=== PATIENT | male | born 1970 | race Caucasian/White ===

== ENCOUNTER 2020-01-23 20:38 | Emergency (ER) | payer BC, SELFPAY ==
[2020-01-23 20:46] VITALS: BP 158/101; PULSE 80; RESP 18; TEMP 36.7; O2SAT 97
--- NOTE | 2020-01-23 20:56 | ED.GENADULT ---
HPI - General Adult General Chief complaint: Wound/Laceration Stated complaint: laceration to foot with glass Time Seen by Provider: 01/23/20 20:40 Source: patient and family Mode of arrival: ambulatory Limitations: no limitations History of Present Illness HPI narrative: Patient is a 49-year-old male who presents with left foot laceration patient was walking when a piece of glass cut his foot at the forefoot along the medial aspect there was a piece of glass protruding from the garbage patient notes mild aching pain states his tetanus is up-to-date denies any other complaints patient presents per private vehicle immediately after the incident Related Data Allergies Allergy/AdvReac Type Severity Reaction Status Date / Time No Known Allergies Allergy Unverified 10/14/17 14:19 Review of Systems Review of Systems: All systems reviewed & are unremarkable except as noted in HPI and below PMFSH Past Medical History Medical History (Updated 01/23/20 @ 20:59 by Akash Bacon PA-C) Depression Exam Narrative: Exam Narrative: GENERAL: Well-appearing, well-nourished, and in no acute distress. HEAD: Normocephalic, atraumatic. EYES: PERRLA and EOMI. ENT: Nares clear, no rhinorrhea or epistaxis. Mucous membranes moist. EXTREMITIES: Normal range of motion. No edema. SKIN: Warm, dry, no rash. 4 cm laceration of the left forefoot along the medial aspect that is superficial and linear in nature wound was explored no foreign bodies NEURO: No focal deficits. Alert and oriented x3. Neurovascularly intact PSYCH: Normal mood and affect. Course Course Emergency Course: Patient in the room at this time aware of case findings treatment plan and diagnosis agreeing to follow-up as directed had closure of the wound has tetanus up-to-date felt appropriate for outpatient reevaluation Vital Signs Vital signs: Vital Signs Temperature 98.1 F 01/23/20 20:46 Pulse Rate 80 01/23/20 20:46 Respiratory Rate 18 01/23/20 20:46 Blood Pressure 158/101 H 01/23/20 20:46 Pulse Oximetry 97 01/23/20 20:46 Temperature 98.1 F 01/23/20 20:46 Pulse Rate 80 01/23/20 20:46 Respiratory Rate 18 01/23/20 20:46 Blood Pressure 158/101 H 09/19/20 20:46 Pulse Oximetry 97 01/23/20 20:46 Procedures Laceration Laceration 1: Date: 01/23/20 Time: 20:58 Site: lower extremity Side (If applicable): left Size (cm): 4 Description: linear Depth: simple, single layer Local Anesthetic: none Pre-repair: wound explored, irrigated and irrigated extensively ====== Skin Level ====== Skin layer closed with: zaida Number of sutures: 7 ====== Subcutaneous Layer ====== ====== Muscle Layer ====== ====== Tendon Layer ====== Dressing: Wound was prepped with [employer] scrub with copious irrigation closure with zaida edges well approximated nonadhesive 4 x 4 and Coban placed post procedure neurovascularly intact pre-and post procedure Medical Decision Making MDM Narrative Medical decision making narrative: Patients injury or pain is consistent with musculoskeletal etiology. No signs of neurological or vascular compromise on exam. Compartments and tisues are soft without signs of compartment syndrome. Pain is felt appropriate for further evaluation on an outpatient basis. Vital Signs Vital Signs: Vital Signs Temperature 98.1 F 01/23/20 20:46 Pulse Rate 80 01/23/20 20:46 Respiratory Rate 18 01/23/20 20:46 Blood Pressure 158/101 H 01/23/20 20:46 Pulse Oximetry 97 01/23/20 20:46 Temperature 98.1 F 01/23/20 20:46 Pulse Rate 80 01/23/20 20:46 Respiratory Rate 18 01/23/20 20:46 Blood Pressure 158/101 H 01/23/20 20:46 Pulse Oximetry 97 01/23/20 20:46 Discharge Plan Discharge Clinical Impression: Laceration Patient Disposition: Home, Self-Care Condition: Stable Instructions: Antibiotic Form, Lacerati
--- NOTE | 2020-01-23 21:29 | PC.NURSE ---
post op shoe applied as ordered.
[2020-01-23 21:39] VITALS: BP 147/83; PULSE 76; RESP 16; TEMP 36.7; O2SAT 99
== END 2020-01-23 21:40 | disposition home or self-care (01) ==
LOC: ANHED 21:16
PROVIDERS: Emergency Provider Emergency Medicine; PCP Internal Medicine
DX: S91.312A Laceration without foreign body, left foot, initial encounter (principal); W25.XXXA Contact with sharp glass, initial encounter
CPT/HCPCS: 12002; 99282